=== PATIENT | female | born 1950 | race Caucasian/White ===

== ENCOUNTER 2016-05-18 15:43 | Inpatient (IN) | payer OTHER ==
--- NOTE | ~2016-05-18 | PN ---
Unit #: [id number] #: [id number] Patient: ANDREW CAMEJO [id number] [facility] [address] [place] [address] [id number] MR#: [id number] NAME: ANDREW CAMEJO ROOM: P131 Age: 65 Sex: F Admission Date: 05/18/2016 : 1950 Attending Physician: Linus Watt M.D. Admitting Physician: Marlene Butler PROGRESS NOTES DATE 05/23/2016 DISCUSSION Ms. Andrew Camejo is a 65-year-old female seen on 05/23/2016. Patient interviewed. Chart reviewed. Obtained information from nursing staff. Patient's mood was labile, anxious, nervous but denied any thoughts of harming self or others. Complete review of system unremarkable. MENTAL STATUS EXAMINATION General appearance, patient dressed casually. Attention span, concentration fair. Oriented in place and person. Mood and affect was labile. Speech regular rate. Thought process goal-directed. Patient denied any thoughts of harming self or others or any psychotic symptoms. Recent and remote memory poor. Insight and judgement poor. DIAGNOSIS Major depressive disorder, recurrent. ASSESSMENT/PLAN Advised to continue with current medication and therapeutic protocol. Will monitor response to medication and make further adjustment of medication. Dictated by... Marlene Butler/john TD: 05/24/2016 18:25 JOB #: [id number] Unit #: [id number] #: [id number] Patient: ANDREW CAMEJOCE PROGRESS NOTES X Linus Watt MD PROGRESS NOTE
--- NOTE | ~2016-05-18 | CO ---
Unit #: [id number] #: [id number] Patient: ANDREW CAMEJO [id number] [place] [address] [id number] MR#: [id number] NAME: ANDREW CAMEJO ROOM: P131 Age: 65 Sex: F Admission Date: 05/18/2016 : 1950 Attending Physician: Linus Watt M.D. Consultation Date: 05/19/2016 CONSULTATION REPORT HISTORY OF PRESENT ILLNESS Andrew has a history of hypertension. She was started on Entresto, however, this is not available in the pharmacy and she does not have this medication with her. She reports that her physician started it several months ago and she has an appointment to follow up regarding this medication in the next week or so. She also was recently treated for pneumonia in the ER with IV Augmentin. She has been using inhalers, but does continue to have a cough. She has no other complaints. PHYSICAL EXAMINATION CARDIAC: Regular rate and rhythm. No murmur, gallop, or rub. RESPIRATORY: Bilateral crackles in all lobes. ASSESSMENT AND PLAN 1. Hypertension. We will change Entresto to valsartan p.o. daily. Please notify if blood pressure is consistently greater than 140/90. 2. Pneumonia. We will continue Augmentin for an additional 5 days. The patient believes she has been taking it for at least 5 days, but cannot recall the last time she took the medication. We will also change ProAir to 2 puffs q.4 hours while awake for 48 hours. Please notify if symptoms are unresolved. Dictated by... Luz Vallejo A.P.R.N. for Marlene Davis/josiah TD: 05/19/2016 18:08 JOB #: [id number] CONSULTATION REPORT X LUZ JUSTICE APRN X CONSULTATION REPORT
--- NOTE | ~2016-05-18 | PN ---
Unit #: [id number] #: [id number] Patient: ANDREW CAMEJO [id number] [facility] [address] [place] [address] [id number] MR#: [id number] NAME: ANDREW CAMEJO ROOM: P131 Age: 65 Sex: F Admission Date: 05/18/2016 : 1950 Attending Physician: Linus Watt M.D. Admitting Physician: Marlene Butler PROGRESS NOTES DATE 05/20/2016 DISCUSSION Andrew Camejo is a 65-year-old female seen on 05/20/2016. The patient interviewed, chart reviewed. Obtained information from nursing staff. The patient reported still feeling sad, depressed, anxious, nervous. The patient's vital signs 97.6, 89, 124/46. The patient continues to be isolative, flat affect, withdrawn, sad, depressed. The patient reported still having suicidal ideation. The patient was admitted with suicidal ideation but denied any psychotic symptoms. Complete review of systems unremarkable. MENTAL STATUS EXAMINATION General appearance, the patient dressed casually. Attention span and concentration fair. Oriented to place and person. Mood and affect was labile. Speech slow. Thought process circumstantial. The patient denied any thoughts of harming others but still having suicidal ideation, guarded. Recent and remote poor. Insight and judgement poor. DIAGNOSES 1. Mood disorder NOS. 2. Major depressive disorder recurrent. ASSESSMENT/PLAN Advise to continue with current medication and therapeutic protocol. We will monitor response to medication and make further adjustment of medication. Dictated by... Marlene Butler/meek TD: 05/21/2016 20:34 JOB #: [id number] Unit #: [id number] #: [id number] Patient: ANDREW CAMEJO JAMISON PROGRESS NOTES X Linus Watt MD PROGRESS NOTE
--- NOTE | ~2016-05-18 | HP ---
Unit #: [id number] #: [id number] Patient: ANDREW CAMEJO [id number] [facility] [address] [place] [address] [id number] I MR#: [id number] NAME: ANDREW CAMEJO ROOM: P131 Age: 65 Sex: F Admission Date: 05/18/2016 : 1950 Attending Physician: Linus Watt M.D. Admitting Physician: Linus Watt M.D. HISTORY AND PHYSICAL HISTORY OF PRESENT ILLNESS Andrew is a 65-year-old female admitted on 05/18/[address] [place] [address] for suicidal ideation. PAST MEDICAL HISTORY 1. Gastroesophageal reflux disease 2. Hypertension 3. Chronic obstructive pulmonary disease 4. Insomnia 5. Chronic pancreatitis 6. Type II diabetes 7. Seizure disorder PAST SURGICAL HISTORY 1. Hysterectomy 2. Tonsillectomy 3. Right foot bunionectomy 4. Cholecystectomy SOCIAL HISTORY Smokes one pack of cigarettes daily, no alcohol or illegal drug use. FAMILY HISTORY Noncontributory. REVIEW OF SYSTEMS CONSTITUTIONAL: No fever or chills. HEENT: Denies any sore throat, ear pain or runny nose. CARDIOVASCULAR: Denies chest pain, irregular heart rhythm or palpitations. CHEST: Denies shortness of breath or cough. No hemoptysis. GASTROINTESTINAL: Denies nausea, vomiting, diarrhea or chronic constipation. ENDOCRINE: Denies history of increased thirst or urination. No recent significant weight loss or gain. GENITOURINARY: Denies dysuria, frequency, or hematuria. SKIN: Denies any rashes. HEMATOLOGIC: Denies history of increased bleeding or bruising. MUSCULOSKELETAL: Denies any hot, swollen joints. No generalized muscle pain. NEUROLOGIC: Denies problems with vision or speech. No frequent, severe headaches. No numbness, tingling or weakness in any extremities. Denies Unit #: [id number] #: [id number] Patient: ANDREW CAMEJO loss of bladder or bowel control. CURRENT MEDICATIONS 1. Nexium 2. Zenpep 3. Entresto 4. Advair 5. Aspirin 6. ProAir 7. Coreg 8. Trazodone 9. Neurontin 10. Valium 11. Vistaril 12. Lisinopril 13. Metformin 14. Dilantin 15. DuoNeb 16. Percocet 17. Pepcid 18. Mucinex 19. Florastor 20. Augmentin ALLERGIES Ibuprofen, naproxen, Elavil and codeine. PHYSICAL EXAMINATION GENERAL: Alert, oriented, in no acute distress. VITAL SIGNS: Blood pressure 114/73, heart rate 84, temperature 97.6, respirations 18. HEIGHT: 5 foot 2 inches. WEIGHT: 125 pounds. SKIN: Warm and dry without rash or lesion. HEENT: Normocephalic. TMs not viewed. Oral and nasal passages clear. Conjunctivae clear. PERRLA. EOMs intact. NECK: Supple without lymphadenopathy or thyromegaly. HEART: Regular rate and rhythm without murmur. LUNGS: Clear. ABDOMEN: Soft, nontender, without masses or hepatosplenomegaly. : Not done. EXTREMITIES: No evidence of cyanosis, clubbing or edema. Moves all without focal deficit. NEUROLOGICAL: Grossly within normal limits. Cranial Nerves: II: Visual hatch are intact. III, IV AND : Extraocular movements are intact. Pupils are equal, round and reactive to light. V: Facial sensation is grossly normal. VII: Facial movements and expression are normal. VIII: Auditory acuity grossly intact. IX, X: Uvula is midline. Phonation is normal. XI: Patient shrugs shoulders and turns head normally. XII: Tongue protrudes in the midline. Sensory and Motor Function: Sensory and motor sensation is grossly normal. Motor: moves all extremities well. Coordination: Gait is normal. Deep Tendon Reflexes: Intact. IMPRESSION 1. Psychiatric admission. 2. Hypertension. Unit #: [id number] #: [id number] Patient: ANDREW CAMEJO GIA 3. Chronic obstructive pulmonary disease. 4. Insomnia. 5. Chronic pancreatitis. 6. Type II diabetes. 7. Seizure disorder. RECOMMENDATIONS Psychiatric, per psychiatrist. MEDICAL: I see no contraindications to participating in facility's activities. MEDICAL PROGNOSIS Good. MEDICAL CONDITION Stable. Dictated by... Catie Lindsey/meek TD: 05/19/2016 23:26 JOB #: [id number] HISTORY AND PHYSICAL X RICH JUSTICE APRN X HISTORY AND PHYSICAL
--- NOTE | ~2016-05-18 | PN ---
Unit #: [id number] #: [id number] Patient: ANDREW CAMEJO [id number] [facility] [address] [place] [address] [id number] I MR#: [id number] NAME: ANDREW CAMEJO ROOM: P131 Age: 65 Sex: F Admission Date: 05/18/2016 : 1950 Attending Physician: Linus Watt M.D. Admitting Physician: Marlene Butler NOTES DATE OF SERVICE: 05/22/2016 DISCUSSION Ms. Peoples is a 65-year-old female, seen on 05/22/2016. The patient interviewed, chart reviewed, and obtained information from nursing staff. The patient reported that she is still feeling sad and depressed, still having problem with depression, anxiety, and suicidal ideation. The patient was compliant and cooperative, but still isolative, guarded, flat affect. Complete review of systems unremarkable. MENTAL STATUS EXAMINATION General appearance, the patient dressed casually. Attention span and concentration, fair. Oriented in place and person. Mood and affect, sad and dysphoric. Speech, monotone. Thought process, concrete. The patient denied any thoughts of harming others, but having suicidal ideation and guarded. Recent and remote memory, poor. Insight and judgment, poor. DIAGNOSIS Major depressive disorder, recurrent, severe. ASSESSMENT AND PLAN Advised to continue with current medication and therapeutic protocol. We will monitor response to medication and make further adjustment of medication. Dictated by... Marlene Butler/josiah TD: 05/22/2016 22:54 JOB #: [id number] Unit #: [id number] #: [id number] Patient: ANDREW CAMEJO [facility] PROGRESS NOTES X Linus Watt MD PROGRESS NOTE
--- NOTE | ~2016-05-18 | DS ---
Unit #: [id number] #: [id number] Patient: ANDREW CAMEJO [id number] [place] [address] [id number] I MR#: [id number] NAME: ANDREW CAMEJO ROOM: P131 Age: 65 Sex: F Admission Date: 05/18/2016 : 1950 Discharge Date: 05/24/2016 Attending Physician: Linus Watt M.D. DISCHARGE SUMMARY REASON FOR ADMISSION Depression. DIAGNOSTIC STUDIES LABORATORY RESULTS: Remarkable for glucose 119, potassium 5.3, hemoglobin 11.1. Urine drug screen positive for benzodiazepine. HOSPITAL COURSE The patient was admitted to inpatient unit on 05/18/2016 and discharged on 05/24/2016. The patient was treated on the inpatient unit with expressive therapy, medication management, psychotherapy, psychoeducation, responded well with the above modalities of treatment. Subsequently, the patient was discharged with a plan to follow up in outpatient program. DISCHARGE MEDICATIONS Desyrel 100 mg at bedtime for sleep, Vistaril 25 mg t.i.d. for anxiety, Celexa 20 mg daily for depression, Augmentin 875 mg b.i.d. for infection for 5 days, Neurontin 600 mg t.i.d. for anxiety and chronic pain. DISCHARGE DIAGNOSES Psychiatric: Major depressive disorder, recurrent, severe, F33.2. Secondary diagnosis: Deferred. Medical diagnoses: Gastroesophageal reflux disease, hypertension, chronic obstructive pulmonary disease, insomnia, chronic pancreatitis, type 2 diabetes, seizure disorder, status post hysterectomy, tonsillectomy, right foot bunionectomy, cholecystectomy. Stressors: Psychosocial stressors. DISCHARGE INSTRUCTIONS The patient to continue with the Percocet, but not given any prescription. CONDITION ON DISCHARGE The patient was pleasant and cooperative, denied any psychotic symptom or any suicidal ideation. PROGNOSIS Guarded. DIET AND ACTIVITY As tolerated. Unit #: [id number] #: [id number] Patient: ANDREW CAMEJO Dictated by... Marlene Butelr/josiah TD: 05/25/2016 06:05 JOB #: [id number] DISCHARGE SUMMARY X Linus Watt MD DISCHARGE SUMMARY
--- NOTE | ~2016-05-18 | PN ---
Unit #: [id number] #: [id number] Patient: ANDREW CAMEJO [id number] [facility] [address] [place] [address] [id number] MR#: [id number] NAME: ANDREW CAMEJO ROOM: P131 Age: 65 Sex: F Admission Date: 05/18/2016 : 1950 Attending Physician: Linus Watt M.D. Admitting Physician: Marlene Butler PROGRESS NOTES DATE 05/19/2016 DISCUSSION Ms. Peoples is a 65-year-old female, seen on 05/19/2016. The patient interviewed, chart reviewed, and obtained information from the nursing staff. The patient reported having suicidal ideation, sad, depressed, withdrawn, flat affect. The patient reported having some difficulty with the balance, but hygiene and grooming was fair. She was compliant with medication. REVIEW OF SYSTEMS Complete review of systems unremarkable. MENTAL STATUS EXAMINATION General appearance: Patient casually dressed. Attention span and concentration, fair. Oriented to place, and person. Mood and affect, sad and dysphoric, anxious, nervous. Speech, regular rate. Thought process, goal-directed. Association, the patient denied any thoughts of harming self or others or any psychotic symptoms. Recent and remote memory, poor. Insight and judgment, poor. DIAGNOSIS Major depressive disorder, recurrent. ASSESSMENT/PLAN Advised to continue with the current medication. the patient was started on Celexa with no side effects to medication. Continue with the inpatient programming, if needed consider further adjustments of medication. Dictated by... Marlene Butler/megan TD: 05/20/2016 07:22 JOB #: [id number] Unit #: [id number] #: [id number] Patient: ANDREW CAMEJORICK PROGRESS NOTES X Linus Watt MD PROGRESS NOTE
--- NOTE | ~2016-05-18 | PN ---
Unit #: [id number] #: [id number] Patient: ANDREW CAMEJO [id number] [facility] [address] [place] [address] [id number] MR#: [id number] NAME: ANDREW CAMEJO ROOM: P131 Age: 65 Sex: F Admission Date: 05/18/2016 : 1950 Attending Physician: Linus Watt M.D. Admitting Physician: Marlene Butler NOTES DATE OF SERVICE: 05/21/2016 DISCUSSION Ms. Peoples is a 65-year-old female, seen on 05/21/2016. The patient interviewed, chart reviewed, and obtained information from nursing staff. The patient reported that she is still feeling sad, depressed, having suicidal ideation, unable to contract for safety. The patient was able to participate in group. Reported that she is on lower dosage of Neurontin and having problem with pain. Complete review of systems unremarkable. MENTAL STATUS EXAMINATION General appearance; the patient dressed casually, thin built. Attention span and concentration, fair. Oriented in time, place, and person. Mood and affect were sad, depressed, withdrawn. Speech was rapid. Thought process, circumstantial. The patient reported having suicidal ideation and depression. Denied any homicidal ideation or psychotic symptom. Recent and remote memory, poor. Insight and judgment, poor. DIAGNOSIS Major depressive disorder, recurrent. ASSESSMENT AND PLAN Advised to continue with current medication and therapeutic protocol with a plan to increase Neurontin to t.i.d. If needed, consider further adjustment of medication. Dictated by... Marlene Butler/josiah TD: 05/21/2016 19:10 JOB #: [id number] Unit #: [id number] #: [id number] Patient: ANDREW CAMEJO JAMISON PROGRESS NOTES X Linus Watt MD PROGRESS NOTE
--- NOTE | ~2016-05-18 | PA ---
Unit #: [id number] #: [id number] Patient: ANDREW CAMEJO [id number] [facility] [address] [place] [address] [id number] I MR#: [id number] NAME: ANDREW CAMEJO ROOM: P131 Age: 65 Sex: F Admission Date: 05/18/2016 : 1950 Date of Assessment: 05/18/2016 Attending Physician: Linus Watt M.D. Admitting Physician: Linus Watt M.D. PSYCHIATRIC ASSESSMENT INFORMANTS The patient reliability, fair informant and chart reliability, good. CHIEF COMPLAINT Depression and suicidal ideation. HISTORY OF PRESENT ILLNESS Ms. Andrew Camejo is a 65-year-old female, seen on . The patient presented with the above-mentioned complaint. The patient reported receiving outpatient services through [facility] for depression and anxiety. The patient reported she was having extreme desire to end her life. Yesterday, the patient reported she was going to walk in front of the bus. The patient reported different kinds of suicidal plans. The patient reported when she has overdosed the pills, she has do attempted to call for help. The patient is suicidal with a plan and recommended inpatient treatment. The patient denied any homicidal ideation. Denied any psychotic symptom. The patient reported alcohol use, age of onset 18. The patient denies any use of any illicit substances. Needing inpatient admission at this time for psychiatric stabilization. PAST PSYCHIATRIC HISTORY Remarkable for history of outpatient services through . No history of any inpatient treatment. FAMILY HISTORY/SOCIAL HISTORY The patient's family psychiatric illness is remarkable for history of mental illness and substance abuse in the family. Details unknown at this time. No known history of any abuse. MEDICAL HISTORY Remarkable for history of epilepsy, broken heart syndrome, chronic pain, history of skull fracture in the past. Musculoskeletal; muscle strength and tone, no atrophy or abnormal movement. Gait normal. MEDICATION HISTORY The patient is on Dilantin, metformin, Protonix, Desyrel, Pepcid, Valium, Neurontin, Coreg, Proventil and also Glucophage and Zestril. ALLERGIES No known drug allergies. SUBSTANCE ABUSE HISTORY Unit #: [id number] #: [id number] Patient: ANDREW CAMEJO None. REVIEW OF SYSTEMS HEENT: Eyes, clear. Ears, nose, mouth, and throat; clear. CARDIOVASCULAR: Unremarkable. RESPIRATORY: Unremarkable. GI: Unremarkable. : Unremarkable. SKIN: Unremarkable. LYMPH NODE: Unremarkable. NEUROLOGIC: Unremarkable. ENDOCRINE: Unremarkable. HEMATOLOGIC: Unremarkable. ALLERGIC/IMMUNOLOGIC: Unremarkable. MUSCULOSKELETAL: Muscle strength and tone, no atrophy or abnormal movement. Gait somewhat unsteady. PSYCHIATRIC EXAMINATION Description of speech; regular rate, normal volume, normal articulation, coherent, and spontaneous. Description of thought process, goal directed. Description of association, intact. Description of abnormal psychotic thinking, the denied any hallucination or delusions, but suicidal ideation. No homicidal ideation. Description of the patient's judgment: Concerning everyday activity, poor. Social situation, poor. Concerning psychiatric condition, poor. Complete mental status examination; oriented in time, place, and person. Recent and remote memory, fair. Attention span and concentration, fair. Language, able to name object and repeat phrases. Fund of knowledge, aware of current event and passive vocabulary intact. Mood and affect, sad and dysphoric. Insight and judgment, fair to poor. ASSETS AND LIABILITIES Assets, the patient is articulate and able to take care of her ADL. Liability, depression and suicidal ideation. ADMITTING DIAGNOSES Psychiatric: Major depressive disorder, recurrent, severe, F33.2. Secondary diagnosis: Deferred. Medical diagnosis: Please refer to H and P. Stressors: Psychosocial stressors. PSYCHIATRIC PLAN AND TREATMENT GOAL AND DISCHARGE PLAN 1. Advised to admit the patient on the inpatient unit. Provide safe, supportive, and structured environment. 2. Ordered labs; CBC, CMP, UA, and UDS. 3. Precaution for aggression and self-harm. 4. The patient to attend ND1 precaution. 5. The patient to continue with current medication with a plan to add Celexa 20 mg daily for depression. Continue with Vistaril 25 mg t.i.d., Protonix 40 mg daily, Desyrel 100 mg at bedtime, Pepcid 20 mg b.i.d., Dilantin capsules 200 mg b.i.d., Valium 5 mg b.i.d., Neurontin 600 mg b.i.d., Coreg 3.125 mg b.i.d., Proventil inhaler 2 puffs q.i.d., Entresto 24 mg/26 mg one tablet b.i.d., Percocet 5/325 mg one tab q.4 p.r.n. for pain, Symbicort two inhalation b.i.d., Glucophage 500 mg b.i.d., Zestril 5 Unit #: [id number] #: [id number] Patient: BASHIR,ANDREW GIA mg daily, aspirin 81 mg daily, Augmentin 875 mg q.12 hours for 5 days, Florastor 250 mg b.i.d., and Humibid LA 600 mg b.i.d. for 4 days. TREATMENT GOAL To attain euthymic mood, gain insight into her problem, and learn coping skills. DISCHARGE PLAN Plan to stabilize the patient and consider followup in outpatient program. ESTIMATED LENGTH OF STAY 5 to 7 days. Dictated by... Marlene Butler/josiah TD: 05/19/2016 17:42 JOB #: [id number] PSYCHIATRIC ASSESSMENT X Linus Watt MD X PSYCHIATRIC ASSESSMENT
[2016-05-19 11:34] LABS: URINE APPEARANCE CLEAR; URINE BILIRUBIN NEG (NEG); URINE BLOOD NEG (NEG); URINE COLOR YELLOW; URINE GLUCOSE NEG (NEG); URINE KETONE NEG (NEG); URINE LEUKOCYTE ESTERASE NEG (NEG); URINE NITRATE NEG (NEG); URINE PROTEIN NEG (NEG); URINE UROBILINOGEN 0.2 MG/DL (NEG)
[2016-05-19 12:16] LABS: AMPHETAMINE NEG (NEG); BARBITURATES NEG (NEG); BENZODIAZEPINES POS (NEG); COCAINE NEG (NEG); MARIJUANA NEG (NEG); OPIATES NEG (NEG); TRICYCLIC ANTIDEPRESSANTS NEG (NEG); U METHADONE NEG (NEG)
[2016-05-21 09:29] LABS: BASOPHIL# 0.1 X10e3 (0-0.3); BASOPHIL% 0.7 % (0-2.5); EOSINOPHIL# 0.5 X10e3 (0-0.7); EOSINOPHIL% 5.4 % (0.0-7.0); HEMATOCRIT 34.9 % (35.0-45.0); HEMOGLOBIN 11.1 gm/dL (12.0-16.0); LYMPHOCYTE# 3.7 X10e3 (1.0-3.5); LYMPHOCYTE% 37.9 % (17.0-45.0); MEAN CELL VOLUME 91.7 FL (83-96); MEAN CORPUSCULAR HEMOGLOBIN 29.1 PG (28-34); MEAN CORPUSCULAR HGB CONC 31.8 g/dL (30-36); MEAN PLATELET VOLUME 8.5 FL (6.5-11.5); MONOCYTE% 10.2 % (3.0-12.0); NEUTROPHIL# 4.5 X10e3 (1.5-7.1); NEUTROPHIL% 45.8 % (40-75); PLATELET COUNT 296 X10e3 (140-420); RED BLOOD COUNT 3.81 X10e (3.90-5.30); RED CELL DISTRIBUTION WIDTH 16.8 % (11.0-15.5); WHITE BLOOD COUNT 9.7 X10e3 (4.0-10.5)
[2016-05-21 09:38] LABS: DIFF IND NO
[2016-05-21 09:54] LABS: THYROID STIMULATING HORMONE 1.61 uIU/ml (0.34-5.60)
[2016-05-21 10:01] LABS: FREE THYROXIN (T4) 0.59 ng/dL (0.58-1.64)
[2016-05-21 10:27] LABS: ALBUMIN SERUM 3.4 g/dL (3.5-5.0); ALKALINE PHOSPHATASE 72 U/L (32-92); ALT (SGPT) 23 U/L (10-40); AST (SGOT) 36 U/L (10-42); BILIRUBIN,TOTAL 0.4 mg/dL (0.2-2.0); BLOOD UREA NITROGEN 20 mg/dL (9-23); CALCIUM SERUM 8.9 mg/dL (8.4-10.2); CARBON DIOXIDE 27 mmol/L (22-31); CHLORIDE 101 mmol/L (100-111); CREATININE SERUM 0.8 mg/dL (0.6-1.4); DILANTIN (PHENYTOIN) 13.4 ug/mL (10.0-20.0); GLOM FILT RATE Estimated ABOVE60 mL/min (>60); GLUCOSE FASTING 115 mg/dL (70-110); PROTEIN TOTAL SERUM 6.8 g/dL (6.0-8.3); SODIUM 136 mmol/L (135-145)
[2016-05-21 10:59] LABS: POTASSIUM 5.7 mmol/L (3.5-5.1)
[2016-05-22 09:46] LABS: ALBUMIN SERUM 3.5 g/dL (3.5-5.0); ALKALINE PHOSPHATASE 77 U/L (32-92); ALT (SGPT) 23 U/L (10-40); AST (SGOT) 32 U/L (10-42); BILIRUBIN,TOTAL 0.7 mg/dL (0.2-2.0); BLOOD UREA NITROGEN 21 mg/dL (9-23); BUN/CREATININE RATIO 26.25; CALCIUM SERUM 9.5 mg/dL (8.4-10.2); CARBON DIOXIDE 28 mmol/L (22-31); CHLORIDE 103 mmol/L (100-111); CREATININE SERUM 0.8 mg/dL (0.6-1.4); GLOM FILT RATE Estimated ABOVE60 mL/min (>60); GLUCOSE FASTING 119 mg/dL (70-110); POTASSIUM 5.3 mmol/L (3.5-5.1); SODIUM 138 mmol/L (135-145)
== END 2016-05-24 10:00 | disposition home or self-care (01) | DRG 885 ==
LOC: P2S 15:43 → P1S 05-19 17:29 → POF 05-20 14:23 → P1S 05-20 14:26
PROVIDERS: Psychiatry & Neurology Psychiatry
DX: F33.2 Major depressive disorder, recurrent severe without psychotic features (principal); J18.9 Pneumonia, unspecified organism; E11.9 Type 2 diabetes mellitus without complications; K86.1 Other chronic pancreatitis; I10 Essential (primary) hypertension; K21.9 Gastro-esophageal reflux disease without esophagitis; J44.9 Chronic obstructive pulmonary disease, unspecified; G47.00 Insomnia, unspecified; Z79.84 Long term (current) use of oral hypoglycemic drugs; G40.909 Epilepsy, unspecified, not intractable, without status epilepticus; F17.210 Nicotine dependence, cigarettes, uncomplicated; Z90.710 Acquired absence of both cervix and uterus; Z90.49 Acquired absence of other specified parts of digestive tract
CPT/HCPCS: 80053; 80185; 80307; 81003; 82947; 84439; 84443; 85025